=== PATIENT | female | born 1995 | race Caucasian/White ===

== ENCOUNTER → 2019-06-27 | Outpatient (CLI) | payer OTHER ==
[2019-06-27 17:50] LABS: BASO # 0.1 10^3/uL (0.0-0.2); BASO % 0.7 % (0.0-1.0); EOS # 0.1 10^3/uL (0.0-0.5); EOS % 0.7 % (0.0-3.0); HEMATOCRIT 42.1 % (36.0-47.0); LYMPH # 2.1 10^3/uL (1.5-5.0); LYMPH % 29.1 % (24.0-44.0); MEAN CORPUSCULAR HEMOGLOBIN 27.7 pg (27.0-33.0); MEAN CORPUSCULAR HGB CONC 33.3 g/dl (32.0-36.5); MEAN CORPUSCULAR VOLUME 83.4 fl (80.0-96.0); MONO # 0.5 10^3/uL (0.0-0.8); MONO % 7.2 % (0.0-5.0); NEUTROPHILS # 4.5 10^3/uL (1.5-8.5); PLATELET COUNT, AUTOMATED 244 10^3/uL (150-450); RED BLOOD COUNT 5.05 10^6/uL (4.00-5.40); WHITE BLOOD COUNT 7.3 10^3/uL (4.0-10.0)
[2019-06-27 20:40] LABS: CHLAMYDIA DNA AMPLIFICATION NEGATIVE (NEGATIVE); GC DNA AMPLIFICATION NEGATIVE (NEGATIVE)
[2019-06-28 13:51] LABS: HEPATITIS C VIRUS ABY INDEX < 0.0 INDEX (<0.8); HIV 1&2 SCREEN CENTAUR NEGATIVE (NEGATIVE); RUBELLA IgG QUALITATIVE EQUIVOCAL (IMMUNE)
== END ==
LOC: M PLALAB 12:49
PROVIDERS: ATTEND Advanced Practice Midwife
DX: Z34.01 Encounter for supervision of normal first pregnancy, first trimester (principal); Z36.89 Encounter for other specified antenatal screening

== ENCOUNTER → 2019-09-19 | Outpatient (CLI) | payer OTHER ==
--- NOTE | 2019-09-20 01:44 | REP ---
Clinical: Anatomical evaluation. Comparison: None . Findings: Examination demonstrates a single live intrauterine in transverse (head to maternal right) presentation. motion is identified by technologist. Placenta is noted posterior and grade I without evidence for placenta previa or abruption. Placental tip measures 2.2 cm from the closed internal os. Amniotic fluid volume is normal. Cervix measures 3.4 cm in length and appears closed. No evidence for nuchal cord. Gestational age by LMP 19 weeks 3 days with JULIO 02/10/2020 . Gestational age by current measurements 19 weeks 6 days with JULIO 02/07/2020 . FHR equals 135 beats per minute. BPD 4.8 cm 20 weeks 3 days HC 17.2 cm 19 weeks 5 days AC 14.7 cm 20 weeks 0 days FL 3.2 cm 20 weeks 0 days HL 3.1 820 weeks 2 days HC/AC ratio 1.17 Estimated weight 327 grams ( 69th percentile). Anatomical assessment demonstrates normal structures including cranium, choroid plexus, cavum, cerebellum/posterior fossa, lungs, four-chamber heart/ventricular outflow tracts, diaphragm, stomach, cord insertion/three-vessel cord, kidneys/bladder, spine, and extremities. Impression: Single live intrauterine in transverse lie demonstrating appropriate estimated weight and growth. Limited evaluation of the facial features. Remainder of the anatomical assessment is complete and normal.
== END ==
LOC: M WHC 09:50
PROVIDERS: ATTEND Nurse Practitioner Women's Health
DX: Z34.02 Encounter for supervision of normal first pregnancy, second trimester (principal)

== ENCOUNTER → 2019-10-20 | Outpatient (REF) | payer OTHER | LOC: M SFHCLERA 14:28 | PROVIDERS: ATTEND Physician Assistant | DX: R30.0 Dysuria (principal) ==

== ENCOUNTER → 2019-10-23 | Outpatient (CLI) | payer OTHER ==
--- NOTE | 2019-10-24 03:28 | REP ---
Clinical: Anatomical evaluation. Comparison: 09/19/2019 . Findings: Examination demonstrates a single live intrauterine in cephalic presentation. motion is identified by technologist. Placenta is noted posterior and grade I without evidence for placenta previa or abruption. Amniotic fluid volume is normal. Cervix measures 3.1 cm in length and appears closed. No evidence for nuchal cord. Gestational age by LMP 24 weeks 2 days with JULIO 02/10/2020 . Gestational age by current measurements 25 weeks 0 days with JULIO 02/05/2020 . FHR equals 153 beats per minute. Estimated weight 813 grams ( 80th percentile). Anatomical assessment demonstrates normal facial features. Impression: Single live intrauterine in cephalic presentation demonstrating appropriate estimated weight and growth. In conjunction with prior examination anatomical assessment is complete and normal.
== END ==
LOC: M WHC 08:50
PROVIDERS: ATTEND Advanced Practice Midwife
DX: Z36.2 Encounter for other antenatal screening follow-up (principal); Z3A.24 24 weeks gestation of pregnancy

== ENCOUNTER → 2019-11-18 | Outpatient (REF) | payer OTHER ==
[2019-11-18 12:47] LABS: HEMATOCRIT 35.9 % (36.0-47.0); HEMOGLOBIN 12.1 g/dl (12.0-15.5); MEAN CORPUSCULAR HEMOGLOBIN 28.9 pg (27.0-33.0); MEAN CORPUSCULAR HGB CONC 33.7 g/dl (32.0-36.5); MEAN CORPUSCULAR VOLUME 85.7 fl (80.0-96.0); PLATELET COUNT, AUTOMATED 222 10^3/uL (150-450); RED BLOOD COUNT 4.19 10^6/uL (4.00-5.40); WHITE BLOOD COUNT 10.4 10^3/uL (4.0-10.0)
== END ==
LOC: M PLALAB 08:41
PROVIDERS: ATTEND Advanced Practice Midwife
DX: Z34.02 Encounter for supervision of normal first pregnancy, second trimester (principal); Z3A.00 Weeks of gestation of pregnancy not specified

== ENCOUNTER → 2020-01-07 | Outpatient (CLI) | payer OTHER ==
[~2020-01-07] MED LIST: PNV-TAB2 PO
[2020-01-25 20:17] LABS: CREATININE,RANDOM URINE 77.2 MG/DL; TOTAL PROTEIN,RANDOM URINE 16.1 MG/DL (0.0-12.0)
[2020-01-25 20:21] LABS: ALT/SGPT 13 U/L (12-78); BILIRUBIN,TOTAL 0.3 MG/DL (0.2-1.0); CREATININE FOR GFR 0.57 MG/DL (0.55-1.30); GLOMERULAR FILTRATION RATE > 60.0 (>60); LDH LACTATE DEHYDROGENASE 173 U/L (84-246); URIC ACID 3.5 MG/DL (2.6-6.0)
[2020-02-04 10:39] LABS: HEMATOCRIT 40.2 % (36.0-47.0); HEMOGLOBIN 13.5 g/dl (12.0-15.5); MEAN CORPUSCULAR HEMOGLOBIN 28.1 pg (27.0-33.0); MEAN CORPUSCULAR HGB CONC 33.6 g/dl (32.0-36.5); MEAN CORPUSCULAR VOLUME 83.6 fl (80.0-96.0); PLATELET COUNT, AUTOMATED 213 10^3/uL (150-450); RED BLOOD COUNT 4.81 10^6/uL (4.00-5.40); WHITE BLOOD COUNT 12.8 10^3/uL (4.0-10.0)
== END ==
LOC: M LDO 10:35
PROVIDERS: ATTEND Obstetrics & Gynecology
DX: O13.3 Gestational [pregnancy-induced] hypertension without significant proteinuria, third trimester (principal); Z3A.35 35 weeks gestation of pregnancy

== ENCOUNTER 2020-01-21 11:34 | Inpatient (IN) | payer OTHER ==
[2020-01-21] VITALS (14 sets, daily range): BP systolic 111–156; BP diastolic 69–97
[~2020-01-21] VITALS: Ht 160 cm; Wt 89.8 kg
[2020-01-21] MEDS ORDERED: PNV-TAB2 PO (11:44)
[2020-01-21] MEDS ORDERED: LACTATED RINGER'S 1000 ML IV STA (12:08)
[2020-01-21] MEDS ORDERED: miSOPROStol 25 MCG 1/4 TAB (S0191) PV ONE (12:15)
[2020-01-21 12:37] LABS: HEMATOCRIT 36.9 % (36.0-47.0); HEMOGLOBIN 12.5 g/dl (12.0-15.5); MEAN CORPUSCULAR HEMOGLOBIN 28.2 pg (27.0-33.0); MEAN CORPUSCULAR HGB CONC 33.9 g/dl (32.0-36.5); MEAN CORPUSCULAR VOLUME 83.1 fl (80.0-96.0); PLATELET COUNT, AUTOMATED 188 10^3/uL (150-450); RED BLOOD COUNT 4.44 10^6/uL (4.00-5.40); WHITE BLOOD COUNT 10.1 10^3/uL (4.0-10.0)
--- NOTE | 2020-01-21 12:44 | HPEPDOC ---
Obstetrical History & Physical General Date of Admission Jan 21, 2020 at 11:34 History of Present Illness Destiny is a 24yo with SIUP at 37w1d by lmp of 16 Dec and concordant ultrasounds who presents today for scheduled IOL for GHTN that was discovered in the office. She has no CROWE/vision changes/RUQ pain/SOB/CP. She feels good movement. Denies vb/lof/regular ctx. 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 ABDOMEN: Gravid and non-tender to touch. FETUS: Is vertex (VTX) by sterile vaginal examination (SVE) AND fetus is vertex (VTX) by bedside TAUS EXTREMITIES: No edema of BLE Laboratory Data 24H LABS Laboratory Tests 2 01/21/20 11:39: Serology Scanned Report Hepatitis B Testing Pertinent Laboratoy Data Blood Type: O+ RBC Antibody Screen: Negative HIV: Negative Hepatitis B: Negative Hepatitis C: Negative Rapid Plasma Reagin: Nonreactive Rubella: Nonreactive (equivocal) Chlamydia/Gonorrhea: Negative Group B Streptococcus: Negative Glucose Tolerance Test: 106 Anatomy Ultrasound Ultrasound Date: Oct 22, 2019 Placenta Location: Posterior Normal Anatomy: Yes Placenta Previa: No Steroid Therapy Steroid Therapy: Yes Vaginal Examination Dilation: 1cm Effacement: 50% Station: -2 Cervical Consistency: Medium Cervical Position: Middle Presentation: Cephalic presentation Assessment Heart Rate (FHR): 130 Variability: Moderate Accelerations: Positive Decelerations: None Tocometer Contractions: No Assessment/Plan Assessment Destiny is a 24yo with SIUP at 37w1d by lmp of 16 Dec and concordant ultrasou nds who presents today for scheduled IOL for GHTN. Mild range diastolic bp. No sx of pre-E. Reassuring maternal and status. Cat I FHRT. Cephalic by SCE and TAUS, cervix 1/50/-2. GBS negative. Plan Admit and orient. Caregiver Services Home and consent. Diet: regular for lunch then clear liquids Group B Streptococcus (GBS) negative Labs and intravenous (IV) per unit protocol as well as pre-E profile Counseled on ivey bulb, cytotec, Pitocin and induction of labor (IOL). Will begin IOL with 25mcg PV cytotec then re-eval in 4 hours Lactated Ringers (LR): Bolus 800 mL, then at 125 mL/hr Candidate for epidural in active labor, IV pain medications prior to that Safe to proceed MD Lorenza Mchugh Katrina D MD Jan 21, 2020 12:22
[2020-01-21 12:59] LABS: ALT/SGPT 23 U/L (12-78); BILIRUBIN,TOTAL 0.2 MG/DL (0.2-1.0); CREATININE FOR GFR 0.55 MG/DL (0.55-1.30); GLOMERULAR FILTRATION RATE > 60.0 (>60); LDH LACTATE DEHYDROGENASE 182 U/L (84-246); URIC ACID 3.3 MG/DL (2.6-6.0)
[2020-01-21] MEDS ORDERED: miSOPROStol 50 MCG 1/2 TAB (S0191) PO ONE (18:00)
--- NOTE | 2020-01-21 18:28 | IPNPDOC ---
Text Note Date of Service The patient was seen on 01/21/20. NOTE Intrapartum Note Destiny is a 24yo with SIUP at 37w1d undergoing IOL for GHTN. She had a dose of 25mcg PV cytotec to start, and this next check her cervix was still 1/50/-3. Was able to place ivey cook catheter balloon this attempt, filled with 40ml NS uterine side. Will give 50mcg PO cytotec and plan to re-assess in 4hr. Patient still has no CROWE/vision changes/RUQ pain/SOB/CP. She is overall comfortable, feels some cramping. BPs mostly normotensive to mild range, one isolated severe range Cat I FHRT with bl 120, +accels, -decels, mod inderjit Seeley: ctx q2-3min No s/sx of pre-E. Safe to proceed Noy Britt MD VS,Tad, I+O VSTad I+O Laboratory Tests 01/21/20 12:15 Vital Signs Date Time Temp Pulse Resp B/P (MAP) Pulse Ox O2 Delivery O2 Flow Rate FiO2 01/21/20 15:42 80 131/82 (98) 01/21/20 15:22 16 01/21/20 11:50 97.9 Noy Britt MD Jan 21, 2020 18:28
[2020-01-22] VITALS (20 sets, daily range): BP systolic 108–172; BP diastolic 65–97
[2020-01-22] MEDS ORDERED: OXYTOCIN 30 UNITS IN 0.9% NaCl 500ML IV BAG (J2590) As Ordered ONE (01:56)
[2020-01-22] MEDS ORDERED: OXYTOCIN DRIP 30 UNITS in IV 1 EA IV SCH ×2 (02:00→20:00)
[2020-01-22] MEDS: LR 1,000 ML IV SCH ×2 (02:05→21:48)
[2020-01-22] MEDS ORDERED: BUTORPHANOL 2 MG/ML INJ (J0595) IV PRN (02:45)
[2020-01-22] MEDS ORDERED: miSOPROStol 50 MCG 1/2 TAB (S0191) PO ONE ×2 (13:00→17:15)
[2020-01-22] MEDS ORDERED: LR 1,000 ML IV SCH (19:47)
[2020-01-23] VITALS (68 sets, daily range): BP systolic 107–221; BP diastolic 56–103
[2020-01-23 04:09] LABS: HEMATOCRIT 37.3 % (36.0-47.0); HEMOGLOBIN 12.5 g/dl (12.0-15.5); MEAN CORPUSCULAR HEMOGLOBIN 28.1 pg (27.0-33.0); MEAN CORPUSCULAR HGB CONC 33.5 g/dl (32.0-36.5); MEAN CORPUSCULAR VOLUME 83.8 fl (80.0-96.0); PLATELET COUNT, AUTOMATED 193 10^3/uL (150-450); RED BLOOD COUNT 4.45 10^6/uL (4.00-5.40); WHITE BLOOD COUNT 11.1 10^3/uL (4.0-10.0)
[2020-01-23] MEDS ORDERED: FENTANYL 2MCG/ML ROPIVACAINE 0.2% IN 0.9% NACL 100ML IVBAG As Ordered ONE (06:03)
[2020-01-23] MEDS ORDERED: EPIDURAL/PCA KEYS XX PRN (07:30)
[2020-01-23] MEDS ORDERED: ONDANSETRON 4MG/2ML VIAL IV PRN (07:30)
[2020-01-23] MEDS ORDERED: EPIDURAL COMMENT XX SCH (07:30)
[2020-01-23] MEDS ORDERED: LACTATED RINGER'S 1000 ML IV PRN (07:30)
[2020-01-23] MEDS ORDERED: NALOXONE INJ 0.4MG/1ML VIAL (J2310 PER 1MG) IV PRN (07:30)
[2020-01-23] MEDS ORDERED: diphenhydrAMINE 50MG/ML VIAL (J1200) IV PRN (07:30)
[2020-01-23] MEDS ORDERED: FENTANYL/ROPIVACAINE/NACL BAG 100 ML EPIDURAL SCH (07:30)
[2020-01-23] MEDS ORDERED: ePHEDrine SULFATE 25 MG/5 ML(5MG/ML) SYRINGE IV PRN (07:30)
[2020-01-23] MEDS ORDERED: REFRIGERATOR IV KEYS XX PRN (07:30)
[2020-01-23] MEDS: LR 1,000 ML IV SCH (09:08)
[2020-01-23] MEDS ORDERED: DOCUSATE SODIUM 100 MG CAP PO PRN (15:15)
[2020-01-23] MEDS ORDERED: IBUPROFEN 800 MG TAB PO PRN (15:15)
[2020-01-23] MEDS ORDERED: IBUPROFEN 600MG TAB PO PRN (15:15)
[2020-01-23] MEDS ORDERED: LIDOCAINE 1% MDV 20ML VIAL INFIL ONE (15:15)
[2020-01-23] MEDS ORDERED: MEASLES,MUMPS,RUBELLA VACCINE INJ (MMR-II) (90707) SC SCH (15:15)
[2020-01-23] MEDS ORDERED: DIBUCAINE 1% OINTMENT 30GM TOP PRN (15:15)
[2020-01-23] MEDS ORDERED: OXYTOCIN DRIP 30 UNITS in IV 1 EA IV ONE (15:15)
[2020-01-23] MEDS ORDERED: ACETAMINOPHEN 500 MG TAB PO PRN (15:15)
[2020-01-23] MEDS ORDERED: METHYLERGONOVINE MALEATE 0.2 MG TAB PO PRN (15:15)
[2020-01-23] MEDS ORDERED: ACETAMINOPHEN TAB 650MG DOSE (2X325MG) PO PRN (15:15)
[2020-01-23] MEDS ORDERED: RHOGAM 300 MCG (1500 IU) INJ (J2790) IM SCH (15:15)
[2020-01-24 06:00] VITALS: BP 130/78
[2020-01-24] MEDS: PRENATAL VITAMINS CHEWABLE TABLET PO SCH (09:24)
[2020-01-24 18:00] VITALS: BP 132/83
[2020-01-25 06:00] VITALS: BP 122/71
[2020-01-25] MEDS: PRENATAL VITAMINS CHEWABLE TABLET PO SCH (08:52)
--- NOTE | 2020-02-11 13:18 | DN ---
DATE OF DELIVERY: 01/23/2020. GENDER: Male. APGARS: 8 and 9. PREDELIVERY DIAGNOSIS: 37 weeks gestational hypertension. POSTDELIVERY DIAGNOSIS: Delivered. PROCEDURE: Spontaneous vaginal delivery. YOUTH SERVICES SPECIALIST: Mendoza Glover MD ANESTHESIA: Epidural. ESTIMATED BLOOD LOSS: 300 cc. FINDINGS: A 6 pound 7 ounce male with Apgars 8 and 9. DESCRIPTION OF DELIVERY: After two hour second stage, the patient had spontaneous delivery of a 6 pound 7 ounce male with Apgars 8 and 9 under epidural anesthesia. Nuchal cord times one was reduced manually. The shoulders delivered with ease. The infant was handed to the mother. The cord was doubly clamped and cut. The placenta delivered spontaneously and appeared to be intact. The patient received IV Pitocin immediately after delivery of the placenta. A second-degree perineal laceration was repaired under local anesthesia with 2-0 Chromic in the usual fashion. Sponge and needle counts were correct. [facility]
== END 2020-01-25 11:55 | disposition home or self-care (01) | DRG 807 ==
LOC: M LDI 11:34 → M OBS 01-23 17:18
PROVIDERS: ADMIT Obstetrics & Gynecology; ATTEND Obstetrics & Gynecology
PROC: 3E0DXGC Introduction of Other Therapeutic Substance into Mouth and Pharynx, External Approach (ICD-10-PCS; 2020-01-21)
PROC: 10E0XZZ Delivery of Products of Conception, External Approach (ICD-10-PCS; principal; 2020-01-23)
DX: O13.4 Gestational [pregnancy-induced] hypertension without significant proteinuria, complicating childbirth (principal); Z37.0 Single live birth; Z3A.37 37 weeks gestation of pregnancy

== ENCOUNTER → 2020-02-06 | Outpatient (CLI) | payer OTHER ==
[2020-02-06 14:23] LABS: HEMATOCRIT 40.6 % (36.0-47.0); HEMOGLOBIN 13.1 g/dl (12.0-15.5); MEAN CORPUSCULAR HEMOGLOBIN 27.2 pg (27.0-33.0); MEAN CORPUSCULAR HGB CONC 32.3 g/dl (32.0-36.5); MEAN CORPUSCULAR VOLUME 84.4 fl (80.0-96.0); PLATELET COUNT, AUTOMATED 440 10^3/uL (150-450); RED BLOOD COUNT 4.81 10^6/uL (4.00-5.40); WHITE BLOOD COUNT 6.8 10^3/uL (4.0-10.0)
[2020-02-06 14:50] LABS: ALBUMIN 3.4 GM/DL (3.2-5.2); ALT/SGPT 31 U/L (12-78); BILIRUBIN,TOTAL 0.4 MG/DL (0.2-1.0); BLOOD UREA NITROGEN 10 MG/DL (7-18); CALCIUM LEVEL 9.4 MG/DL (8.5-10.1); CARBON DIOXIDE LEVEL 27 MEQ/L (21-32); CHLORIDE LEVEL 104 MEQ/L (98-107); CREATININE FOR GFR 0.76 MG/DL (0.55-1.30); GLOMERULAR FILTRATION RATE > 60.0 (>60); GLUCOSE, FASTING 71 MG/DL (70-100); POTASSIUM SERUM 4.5 MEQ/L (3.5-5.1); SODIUM LEVEL 138 MEQ/L (136-145); TOTAL PROTEIN 7.3 GM/DL (6.4-8.2)
== END ==
LOC: M PLALAB 09:45
PROVIDERS: ATTEND Obstetrics & Gynecology
DX: O13.5 Gestational [pregnancy-induced] hypertension without significant proteinuria, complicating the puerperium (principal); Z3A.00 Weeks of gestation of pregnancy not specified

== ENCOUNTER → 2022-02-11 | Outpatient (CLI) | payer OTHER ==
[2022-02-11 15:41] LABS: HEMATOCRIT 42.3 % (36.0-47.0); HEMOGLOBIN 14.3 g/dl (12.0-15.5); MEAN CORPUSCULAR HEMOGLOBIN 27.9 pg (27.0-33.0); MEAN CORPUSCULAR HGB CONC 33.8 g/dl (32.0-36.5); MEAN CORPUSCULAR VOLUME 82.6 fl (80.0-96.0); PLATELET COUNT, AUTOMATED 265 10^3/uL (150-450); RED BLOOD COUNT 5.12 10^6/uL (4.00-5.40); WHITE BLOOD COUNT 8.8 10^3/uL (4.0-10.0)
[2022-02-11 16:16] LABS: ALT/SGPT 19 U/L (12-78); BILIRUBIN,TOTAL 0.3 MG/DL (0.2-1.0); CREATININE FOR GFR 0.63 MG/DL (0.55-1.30); GLOMERULAR FILTRATION RATE > 60.0 (>60); LDH LACTATE DEHYDROGENASE 147 U/L (84-246); URIC ACID 2.2 MG/DL (2.6-6.0)
[2022-02-11 16:28] LABS: TOTAL PROTEIN,RANDOM URINE 14.7 MG/DL (0.0-12.0)
[2022-02-11 17:29] LABS: HEPATITIS C VIRUS ABY INDEX < 0.0 INDEX (<0.8)
[2022-02-11 17:30] LABS: HIV 1&2 SCREEN CENTAUR NEGATIVE (NEGATIVE)
[2022-02-13 12:36] LABS: GC DNA AMPLIFICATION NEGATIVE (NEGATIVE)
== END ==
LOC: M PLALAB 13:29
PROVIDERS: ATTEND Advanced Practice Midwife
DX: Z34.91 Encounter for supervision of normal pregnancy, unspecified, first trimester (principal); Z36.89 Encounter for other specified antenatal screening

== ENCOUNTER → 2022-04-22 | Outpatient (CLI) | payer OTHER | LOC: M WHC 15:22 | PROVIDERS: ATTEND Obstetrics & Gynecology | DX: O09.292 Supervision of pregnancy with other poor reproductive or obstetric history, second trimester (principal); O32.1XX0 Maternal care for breech presentation, not applicable or unspecified; Z3A.20 20 weeks gestation of pregnancy ==

== ENCOUNTER → 2022-05-13 | Outpatient (CLI) | payer OTHER | LOC: M WHC 07:18 | PROVIDERS: ATTEND Advanced Practice Midwife | DX: Z34.82 Encounter for supervision of other normal pregnancy, second trimester (principal); Z3A.23 23 weeks gestation of pregnancy ==

== ENCOUNTER → 2022-06-10 | Outpatient (CLI) | payer OTHER ==
[2022-06-10 15:08] LABS: HEMOGLOBIN 12.3 g/dl (12.0-15.5); MEAN CORPUSCULAR HEMOGLOBIN 27.7 pg (27.0-33.0); MEAN CORPUSCULAR HGB CONC 32.4 g/dl (32.0-36.5); MEAN CORPUSCULAR VOLUME 85.6 fl (80.0-96.0); PLATELET COUNT, AUTOMATED 217 10^3/uL (150-450); RED BLOOD COUNT 4.44 10^6/uL (4.00-5.40); WHITE BLOOD COUNT 9.2 10^3/uL (4.0-10.0)
== END ==
LOC: M PLALAB 10:05
PROVIDERS: ATTEND Advanced Practice Midwife
DX: Z34.82 Encounter for supervision of other normal pregnancy, second trimester (principal)

== ENCOUNTER → 2022-07-20 | Outpatient (CLI) | payer OTHER ==
[2022-07-20 14:27] LABS: HEMOGLOBIN 13.2 g/dl (12.0-15.5); MEAN CORPUSCULAR HEMOGLOBIN 27.6 pg (27.0-33.0); MEAN CORPUSCULAR VOLUME 83.7 fl (80.0-96.0); PLATELET COUNT, AUTOMATED 262 10^3/uL (150-450); RED BLOOD COUNT 4.78 10^6/uL (4.00-5.40)
[2022-07-20 14:43] LABS: TOTAL PROTEIN,RANDOM URINE 6.9 MG/DL (0.0-14.0)
[2022-07-20 14:46] LABS: URIC ACID 3.3 MG/DL (3.1-7.8)
[2022-07-20 14:48] LABS: CREATININE,RANDOM URINE 24.8 MG/DL
[2022-07-20 14:48] LABS: LDH LACTATE DEHYDROGENASE 179 U/L (120-246)
[2022-07-20 14:49] LABS: ALT/SGPT 14 U/L (7.0-40); AST/SGOT 13 U/L (<34); BILIRUBIN,TOTAL 0.4 MG/DL (0.3-1.2); CREATININE FOR GFR 0.54 MG/DL (0.55-1.30); GLOMERULAR FILTRATION RATE > 60.0 (>60)
== END ==
LOC: M PLALAB 09:18
PROVIDERS: ATTEND Obstetrics & Gynecology
DX: O16.3 Unspecified maternal hypertension, third trimester (principal); Z3A.00 Weeks of gestation of pregnancy not specified

== ENCOUNTER → 2022-08-04 | Outpatient (CLI) | payer OTHER | LOC: M WHC 12:10 | PROVIDERS: ATTEND Obstetrics & Gynecology | DX: O13.3 Gestational [pregnancy-induced] hypertension without significant proteinuria, third trimester (principal); Z3A.34 34 weeks gestation of pregnancy ==

== ENCOUNTER 2022-08-08 09:21 | Outpatient (CLI) | payer OTHER ==
[~2022-08-08] VITALS: Ht 160 cm; Wt 92.7 kg
[2022-08-08 09:38] VITALS: BP 137/98
[2022-08-08] MEDS ORDERED: ACET-907 PO (09:43)
[2022-08-08] MEDS ORDERED: HOME MED LIST COMPLETE! XX SCH (09:45)
[2022-08-08] MEDS ORDERED: BETAMETHASONE SOLUSPAN 6MG/ML 5ML VIAL IM SCH (10:30)
[2022-08-08 10:31] LABS: HEMOGLOBIN 12.2 g/dl (12.0-15.5); MEAN CORPUSCULAR HEMOGLOBIN 27.4 pg (27.0-33.0); MEAN CORPUSCULAR HGB CONC 33.9 g/dl (32.0-36.5); MEAN CORPUSCULAR VOLUME 80.7 fl (80.0-96.0); PLATELET COUNT, AUTOMATED 214 10^3/uL (150-450); RED BLOOD COUNT 4.46 10^6/uL (4.00-5.40); WHITE BLOOD COUNT 8.8 10^3/uL (4.0-10.0)
[2022-08-08 10:37] LABS: TOTAL PROTEIN,RANDOM URINE 14.8 MG/DL (0.0-14.0)
[2022-08-08 10:42] LABS: CREATININE,RANDOM URINE 57.4 MG/DL
[2022-08-08 10:53] LABS: URIC ACID 3.5 MG/DL (3.1-7.8)
[2022-08-08 10:55] LABS: LDH LACTATE DEHYDROGENASE 189 U/L (120-246)
[2022-08-08 10:56] LABS: ALT/SGPT 9 U/L (7.0-40); AST/SGOT 13 U/L (<34); BILIRUBIN,TOTAL 0.4 MG/DL (0.3-1.2); CREATININE FOR GFR 0.55 MG/DL (0.55-1.30); GLOMERULAR FILTRATION RATE > 60.0 (>60)
== END 2022-08-08 11:10 | disposition home or self-care (01) ==
LOC: M LDO 09:21
PROVIDERS: ATTEND Advanced Practice Midwife
DX: O13.3 Gestational [pregnancy-induced] hypertension without significant proteinuria, third trimester (principal); Z3A.35 35 weeks gestation of pregnancy
CPT/HCPCS: 36415; 59025; 82247; 82565; 82570; 83615; 84156; 84450; 84460; 84550; 85027; 96372; G0463; J0702

== ENCOUNTER 2022-08-09 10:05 | Outpatient (CLI) | payer OTHER ==
[~2022-08-09] VITALS: Ht 160 cm; Wt 90.8 kg
[~2022-08-09 10:05] MED LIST changes: +ACET-907 PO
[2022-08-09 10:19] VITALS: BP 142/104
[2022-08-09 10:20] VITALS: BP 151/99
[2022-08-09] MEDS ORDERED: HOME MED LIST COMPLETE! XX SCH (10:20)
[2022-08-09 10:36] VITALS: BP 153/102
[2022-08-09 10:51] VITALS: BP 154/96
[2022-08-09] MEDS ORDERED: BETAMETHASONE SOLUSPAN 6MG/ML 5ML VIAL IM ONE (11:00)
[2022-08-09 11:06] VITALS: BP 154/96
== END 2022-08-09 11:20 | disposition home or self-care (01) ==
LOC: M LDO 10:05
PROVIDERS: ATTEND Obstetrics & Gynecology
DX: O13.3 Gestational [pregnancy-induced] hypertension without significant proteinuria, third trimester (principal); Z3A.35 35 weeks gestation of pregnancy
CPT/HCPCS: 59025; 96372; G0463; J0702

== ENCOUNTER → 2022-08-17 | Outpatient (REF) | payer OTHER ==
[~2022-08-17] MED LIST changes: +ASPI81CH33 PO
== END ==
LOC: M SFHCWAGY 13:05
PROVIDERS: ATTEND Advanced Practice Midwife
DX: O13.3 Gestational [pregnancy-induced] hypertension without significant proteinuria, third trimester (principal)

== ENCOUNTER → 2025-03-26 | Outpatient (CLI) | payer BC, OTHER ==
[~2025-03-26] MED LIST changes: +IBUP80TA PO
[2025-03-29 14:43] LABS: HPV APTIMA Not Detected (Not Detected)
== END ==
LOC: M PLALAB 16:31
PROVIDERS: ATTEND Family Medicine
DX: R63.5 Abnormal weight gain (principal); Z12.4 Encounter for screening for malignant neoplasm of cervix
CPT/HCPCS: 36415; 84443; 87624; G0123